=== PATIENT | male | born 1985 | race Caucasian/White ===

== ENCOUNTER 2016-07-18 19:03 | Emergency (ER) | payer OTHER ==
--- NOTE | ~2016-07-18 | CR72 ---
[facility]. [facility] A Service of [facility] & [facility] RADIOLOGY TEXT RESULTS PATIENT: ALYSHA VÁZUQEZ LOCATION: SED : 81 UNIT #: [id number] AGE: [address]: Wes Lafleur MD SEX: M ORDER DR: [id number] [address] [address] [id number] MR#: [id number] Acc #: [id number] NAME: ALYSHA VÁZQUEZ. : 1985 SEX: M STUDY DATE/TIME: 07/18/2016 18:57 UNIT: SED ROOM: STUDY DESCRIPTION: CR Chest Single View Portable Attending Physician: Wes Lafleur M.D. Ordering Physician: Xander Ngo M.D. Primary Care Physician: No Primary Care Physician MEDICAL IMAGING REPORT This report is preliminary unless electronic signature is present. EXAM Single view of the chest dated 07/18/2016 at 18:57 hours. COMPARISON None. HISTORY Flu-like symptoms, cough for 3 days. FINDINGS Single view of the chest was obtained. Patchy alveolar infiltrates are noted in the lateral left mid and lower chest. In the setting of pneumonia, findings are suspicious for it. Followup is suggested after treatment to ensure complete resolution. No pleural effusion or pneumothorax. Dictated by... Cleo Rojas M.D. THIS IS AN ELECTRONICALLY VERIFIED REPORT Cleo Rojas M.D. at 07/19/2016 10:31 AM CPR/ea TD: 07/19/2016 04:01 JOB #: [id number] MEDICAL IMAGING REPORT
[2016-07-18 18:57] LABS: INFLUENZA A NEG (NEG); INFLUENZA B NEG (NEG)
[~2016-07-18 19:03] MED LIST: KEFLEX500 MG PO; METFORMIN HCL500 M1 PO; NO MEDICATIONS; PERCOCET5/325 PO
[2016-07-18 19:44] LABS: BUN/CREATININE RATIO 16.87; CALCIUM SERUM 9.4 mg/dL (8.4-10.2); CREATININE SERUM 1.6 mg/dL (0.6-1.4); GLOM FILT RATE Estimated 53.5 mL/min (>60); POTASSIUM 4.1 mmol/L (3.5-5.1)
[2016-07-18 19:47] LABS: BASOPHIL% 0.2 % (0-2.5); EOSINOPHIL% 0.1 % (0.0-7.0); HEMATOCRIT 44.5 % (38.0-50.0); HEMOGLOBIN 14.6 gm/dL (13.0-16.0); LYMPHOCYTE# 0.6 X10e3 (1.0-3.5); LYMPHOCYTE% 2.1 % (17.0-45.0); MEAN CELL VOLUME 87.4 FL (83-96); MEAN CORPUSCULAR HEMOGLOBIN 28.6 PG (28-34); MEAN CORPUSCULAR HGB CONC 32.7 g/dL (30-36); MONOCYTE# 2.6 X10e3 (0-1.0); MONOCYTE% 9.7 % (3.0-12.0); NEUTROPHIL# 23.6 X10e3 (1.5-7.1); NEUTROPHIL% 87.9 % (40-75); PLATELET COUNT 353 X10e3 (140-420); RED BLOOD COUNT 5.09 X10e (3.90-5.60); RED CELL DISTRIBUTION WIDTH 13.2 % (11.0-15.5); WHITE BLOOD COUNT 26.8 X10e3 (4.0-10.5)
[2016-07-18 19:48] LABS: DIFF IND NO
[2016-07-18 21:31] LABS: ARTERIAL BLD GAS O2 SATURATION 95.6 % (90.0-100.0); ARTERIAL BLOOD GAS CARBOXY HB 1.6 %sat (0.0-9.0); ARTERIAL BLOOD GAS HCO3 8.2 mmol/L
[2016-07-18 21:32] LABS: ARTERIAL BLOOD GAS ALLEN TEST NORMAL; ARTERIAL BLOOD GAS ART SITE RIGHT RADIAL; ARTERIAL BLOOD GAS MET HB -0.1 %sat (0.0-2.0); ARTERIAL DRAW? YES
[2016-07-18 21:57] LABS: URINE SOURCE CLEAN CATCH
[2016-07-18 22:00] LABS: URINE APPEARANCE CLEAR; URINE BLOOD 3+ (NEG); URINE COLOR YELLOW; URINE GLUCOSE 300 MG/DL (NORM); URINE LEUKOCYTE ESTERASE NEG (NEG); URINE NITRATE NEG (NEG); URINE PH 5.5 (5-8); URINE PROTEIN 2+ (NEG); URINE UROBILINOGEN 0.2 MG/DL (NORM)
[2016-07-18 22:05] LABS: MICRO INDICATED? YES; URINE BILIRUBIN NEG (NEG); URINE KETONE 3+ (NEG)
[2016-07-18 22:06] LABS: URINE AMORPHOUS SEDIMENT AMORP URATES; URINE BACTERIA NEG (NEG); URINE SQUAMOUS EPITHELIAL CELL FEW /[HPF]; URINE WBC 0-2 /[HPF] (0-5)
== END 2016-07-18 22:23 ==
LOC: SED 19:03
PROVIDERS: Emergency Medicine; Nurse Practitioner
DX: E13.10 Other specified diabetes mellitus with ketoacidosis without coma (principal); J18.9 Pneumonia, unspecified organism; Z88.0 Allergy status to penicillin
CPT/HCPCS: 36415; 36600; 71010; 80048; 81003; 82010; 82803; 82947; 85025; 87040; 87077; 87186; 87651; 87804; 87880; 96361; 96374; 96375; 99285; 99291; J1885; J1956; J2405